=== PATIENT | female | born 1965 | race Two or more races ===

== ENCOUNTER 2018-04-18 14:18 | Outpatient (CLI) | payer OTHER | END 2018-04-18 15:00 | disposition home or self-care (01) | LOC: MAMO-SONO 14:18 | DX: Z12.31 Encounter for screening mammogram for malignant neoplasm of breast (principal); C50.912 Malignant neoplasm of unspecified site of left female breast; C50.911 Malignant neoplasm of unspecified site of right female breast; E04.1 Nontoxic single thyroid nodule ==

== ENCOUNTER 2018-04-25 07:41 | Outpatient (CLI) | payer OTHER | END 2018-04-25 08:24 | disposition home or self-care (01) | LOC: NUCLEAR 07:41 | DX: R10.2 Pelvic and perineal pain (principal); M85.80 Other specified disorders of bone density and structure, unspecified site; I82.403 Acute embolism and thrombosis of unspecified deep veins of lower extremity, bilateral | CPT/HCPCS: 78320; 78306; A9503; 77080; 93970 ==

== ENCOUNTER 2023-06-07 10:25 | Outpatient (CLI) | payer OTHER | END 2023-06-07 10:29 | disposition home or self-care (01) | LOC: NUCLEAR 10:25 | PROVIDERS: ATTEND Internal Medicine Sports Medicine | DX: M81.0 Age-related osteoporosis without current pathological fracture (principal); I87.2 Venous insufficiency (chronic) (peripheral) ==

== ENCOUNTER 2025-10-02 09:17 | Outpatient (CLI) | payer OTHER | END 2025-10-02 09:18 | disposition home or self-care (01) | LOC: NUCLEAR 09:17 | PROVIDERS: ATTEND Internal Medicine Sports Medicine | DX: M81.0 Age-related osteoporosis without current pathological fracture (principal) ==